=== PATIENT | female | born 2000 | race African-American/Black ===

== ENCOUNTER 2021-12-18 20:13 | Inpatient (IN) | payer MEDICAID, SELFPAY ==
[2021-12-18 20:20] VITALS: BP 95/64; PULSE 63; RESP 18; TEMP 36.8; O2SAT 100
[2021-12-18 22:05] VITALS: BMI 21.2
--- NOTE | 2021-12-19 00:55 | PC.ADMIT ---
[facility] Admission Note: The patient,Liz West,21 y/o, was given written information regarding hospital policies, unit procedures and contact persons. Patient's smoking status: . Vital Signs - 8 hr 12/18/21 20:20 Temperature 98.3 F Pulse Rate 63 Respiratory Rate 18 Blood Pressure 95/64 Pulse Oximetry 100 Patient came in as direct admission from [facility] for audio and visual hallucinations and current meth use with 96 hr hold order. Patient was calm and cooperative on admit, denies SI/HI/AVH. Stated she has a history of AVH but its only present when around her ex boyfriend, and states he never abused or hurt her. She has history of SI and previous SA, as well as self harm with several cutting scars to right forearm, and bilateral upper thighs. Patient states it has been a long time since she self harmed, and she no longer does that or has SI. Patient refused to answer alot of initial assessment questions stating i'm tired, I can do that in the morning, its been a really long day. Patient positive for amphetamines and according to chart rcvd from [facility], has known history of meth abuse and has previously been a patient at [facility]. Patient expressed interest in getting clean and returning to [facility]. Patient denied any current medications.
[2021-12-19 06:00] VITALS: BP 99/63; PULSE 57; RESP 16; TEMP 36.7; O2SAT 100
--- NOTE | 2021-12-19 10:15 | P.NPUHP_ITS ---
Providers/Chief Complaint Admitting Physician: Joseph Araujo MD Chief Complaint: Hallucinations HPI NPU History of Present Illness Liz West is a 21 year old female who [facility] reporting methamphetamine use and hallucinations as well as suicidal thoughts, reportedly on referral from a rehab she was attending. She was placed on a 96 hour hold and transferred to [facility] and transferred to the neuropsychiatric unit for definitive treatment of those issues. She presents today reporting that she has been psychiatrically hospitalized about 10 times but has not had significant outpatient services secondary to money and not having insurance. She reports she has been on different medications through the inpatient hospitalizations but not many. She reports that she smokes about 6 to 8 cigarettes a day, denies alcohol, marijuana or any other illicit drug use except for methamphetamine. She reports she has been doing methamphetamine since she was 17 years old and has been mostly using it but has some short period of sobriety, some of those connected to the 2 to 3 rehabs she has attended. She has never had a DUI or any possessions charges. She reports that when she was 11 she started having depression and her family did not assist her in getting help with the depression so it kept getting worse. She reports that by the time she was 17 she started dabbling in drugs and eventually started using methamphetamine and she says she has just been using the methamphetamine off and on since then. She reports that recently when she uses, she has psychotic symptoms and the rehab she was at wanted her to explore the meaning of the hallucinations to see if they represented just a reaction to the methamphetamine or some baseline organic condition such as schizophrenia. She reports that she did have one suicide attempt a couple years ago but denied any self-injurious behaviors. We had a long discussion about the difficulties of teasing that out especially against the backdrop of active use but we discussed how antipsychotics can assist in the alleviation of psychosis. We discussed the risks, benefits and alternatives of a trial of Abilify and she understood and agreed to proceed as is documented in this note. Psychiatric History: As above. Substance Abuse History: As above Family History: The patient denied any mental health or addiction issues on either side of the family and denied any suicide attempts or completions on either side of the family. Developmental History: There were no issues with , or delivery, she learned to walk and talk and met her developmental milestones on time, and denied any need for speech therapy, emotional support, learning support or special education classes. Psychosocial History: She reports that her mother and father were together when she was born and had 5 children who are a product of the same union. She has 3 older sisters and 1 older brother and is the youngest of the children from the same union. Her mother had no other children but her father had 2 other daughters. She reports that her childhood was rich and wealthy. She denied any emotional, physical or sexual abuse. She denied any other traumatic events which is somewhat challenging to the information that had been reported that possibly she has had some serious trauma related to trafficking or the sex trade but she not report any of those things. Later in the interview, she did start talking about these paranoid thoughts that she ?knows are real? about being followed and people trying to exploit her. She reports that she graduated from high school and denied any additional training or education. She endorses being heterosexual with her longest relationship being 2 years. She has never been , has ne loretta had any children, has never been in the and denies any caodaism belief system. 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 She does report that she is currently homeless. Legal History: She reports that she has been in shelter 4 times but denies any extended incarceration periods. Medical History: She denies any issues. She reports she started menstruation around 12 years old and denied any problems with them. Meds NPU Home Medications Medication Instructions Recorded Confirmed Last Taken Type No Known Home Medications 12/18/21 12/18/21 Unknown History Allergies Allergy/AdvReac Type Severity Reaction Status Date / Time No Known Allergies Allergy Verified 12/18/21 20:16 Mental Status Exam MSE Comments: This is a well-nourished, well-developed female with hospital scrubs on with limited grooming and eye contact. Her hair seems to be somewhat disheveled which is probably secondary to it being a wig that has not been well-kept. No abnormal movements except for mild psychomotor agitation. Cooperative with exam in mild distress. Speech was normal rate and volume. Patient mood described as sleepy, affect congruent. Thought process, organized. Thought content: patient denies any current suicidal or homicidal ideation, no delusions noted but reports of paranoia that she quickly wasn?t actual paranoia because of the experience of being followed by trucks and being stalked by exs is real, and denies any auditory or visual hallucinations. Attention and concentration are intact and memory is reliable but none were formally tested. She is alert and oriented three times. Insight and judgment are limited. Impulse control is limited. Vitals/I&O/Wt Last Vital Signs Temp 98.3 F 12/18/21 20:20 Pulse 63 12/18/21 20:20 Resp 18 12/18/21 20:20 BP 95/64 12/18/21 20:20 Pulse Ox 100 12/18/21 20:20 Weight last 48 hrs Weight 61.462 kg Weight 59 kg A&P Assessment and plan (1) Methamphetamine dependence: Status: Acute (2) Psychosis: Status: Acute Plan This is a 21 year old female who presents with active psychosis and active methamphetamine use with questions as to whether it represents substance use versus organic psychotic disorder with some concern of her story pre admission and post admission not necessarily matching who presents open to a trial of medication. Continue current medications except Start Abilify 10 mg po qam Encourage individual, group and milieu therapy Continue q-15 minute check for safety Recommend sober living treatment at the highest level of care to which the patient is willing to commit. We will get collateral information and then address with her any inconsistencies within the stories before and after admission. Involuntary Hold Information 96 Hour Hold: 96 Hour Involuntary Admission: No Attestations NPU Medical Necessity Statement*: Inpatient hospitalization is medically necessary and the clinically appropriate intervention at this time. We will monitor medications and make changes as indicated. Patient will be in the hospital for over two midnights. Likely length of stay is three to five days. Coding Level of Care Code Acute It Service Manager for Jose Rai Diagnoses Methamphetamine dependence F15.20 Psychosis F29
--- NOTE | 2021-12-19 10:43 | NPU.GN ---
[facility] Group Topic:Christina Matthew General Mood of Group: Gia did attend and participate in group today. She enjoyed the activity and sharing experiences with others in group. Her hygiene was good, She appeared to be stable mentally and emotionally.
[2021-12-19 14:00] VITALS: BP 93/58; PULSE 97; RESP 17; TEMP 36.9; O2SAT 98
[2021-12-19 20:32] VITALS: BP 87/45; PULSE 76; RESP 18; TEMP 36.7; O2SAT 97
[2021-12-20 06:00] VITALS: BP 100/64; PULSE 61; RESP 18; TEMP 36.5; O2SAT 98
[2021-12-20] MEDS: ARIPiprazole 10 mg Tablet PO (10:22)
--- NOTE | 2021-12-20 10:35 | NPU.GN ---
[facility] Group Topic: Yogesh Newman General Mood of Group: Gia attended and participated in group. She was social, her hygiene was good and she seemed stable at this time.
[2021-12-20 14:00] VITALS: BP 103/67; PULSE 112; RESP 15; TEMP 36.8; O2SAT 99
--- NOTE | 2021-12-20 14:05 | P.NPUPN_ITS ---
Subjective NPU Subjective: Patient presents today reporting that initially this morning she was feeling kind of odd. Her initial concern was that she had been having some side effect of the medication. But she had some other symptoms that made her think that it was more likely something she ate or that she had eaten enough or something. She currently denies any strange feelings or side effects from starting the medication yesterday. We discussed working with the social work team to determine what her next step will be after discharge. We also reviewed the fact that Judie would be here tomorrow but would have information to continue the process from this point. Mental Status Exam MSE Comments: This is a well-nourished, well-developed female with hospital scrubs on with limited grooming and eye contact. Her hair seems to be somewhat disheveled which is probably secondary to it being a wig that has not been well-kept. No abnormal movements. Cooperative with exam in no acute distress. Speech was normal rate and volume. Patient mood described as okay, affect congruent. Thought process, organized. Thought content: patient denies any current suicidal or homicidal ideation, no delusions noted but reports of paranoia that she quickly notede wasn?t actual paranoia because of the experience of being followed by trucks and being stalked by exs is real, and denies any auditory or visual hallucinations. Attention and concentration are intact and memory is mostly reliable but none were formally tested. She is alert and oriented three times. Insight and judgment are limited. Impulse control is limited. Vitals/I&O/Wt Last Vital Signs Temp 97.6 F 12/20/21 20:33 Pulse 80 12/20/21 20:33 Resp 18 12/20/21 20:33 BP 101/53 12/20/21 20:33 Pulse Ox 97 12/20/21 20:33 A&P Assessment and plan (1) Psychosis: Status: Acute (2) Methamphetamine dependence: Status: Acute Plan This is a 21 year old female who presents with active psychosis and active methamphetamine use with questions as to whether it represents substance use versus organic psychotic disorder with some concern of her story pre admission and post admission not necessarily matching who presents open to a trial of medication. Continue current medications except Started Abilify 10 mg po qam Encourage individual, group and milieu therapy Continue q-15 minute check for safety Recommend sober living treatment at the highest level of care to which the patient is willing to commit. We will get collateral information and then address with her any inconsistencies within the stories before and after admission. Involuntary Hold Information 96 Hour Hold: 96 Hour Involuntary Admission: Yes Attestations NPU Medical Necessity Statement*: Inpatient hospitalization is medically necessary and the clinically appropriate intervention at this time. We will monitor medications and make changes as indicated. Likely length of stay is 2-4 days. Coding Level of Care Code Acute Technical Support Engineer for Jose Rai Diagnoses Psychosis F29 Methamphetamine dependence F15.20
[2021-12-20 20:33] VITALS: BP 101/53; PULSE 80; RESP 18; TEMP 36.4; O2SAT 97
[2021-12-21 06:00] VITALS: BP 108/69; PULSE 74; RESP 16; TEMP 36.8; O2SAT 99
[2021-12-21] MEDS: benzocaine 20% 7 gm 1 APPLIC MUCOUS MEM (06:51)
[2021-12-21] MEDS: ARIPiprazole 10 mg Tablet PO (08:19)
--- NOTE | 2021-12-21 13:03 | P.NPUPN_ITS ---
Subjective NPU Subjective: She says that she is doing much better. She says that the visual hallucinations that she was having. She says that she was seeing people who were not there. She was hearing voices who was trying to control her. Sometimes she can ingnore them and sometimes she cannot. She says that she roberto es methamphetamine to help with depression which she has had since she was 11 years old. Abilify helps the halluci to and the depression. She denies side effects from it and like to continue taking it. She feels like she will be ready to go home tomorrow when her 96-hour hold. Mental Status Exam MSE Comments: This is a well-nourished, well-developed female with hospital scrubs on with limited grooming and poor eye contact. Her hair seems to be somewhat disheveled which is probably secondary to it being a wig that has not been well-kept. No abnormal movements. Cooperative with exam in no acute distress. Speech was normal rate and volume. Patient mood described as depressed but better, affect congruent. Thought process, organized. Thought content: patient denies any current suicidal or homicidal ideation, no delusions or paranoia, and denies any auditory or visual hallucinations. Attention and concentration are intact and memory is mostly reliable but none were formally tested. She is alert and oriented three times. Insight and judgment are limited. Impulse control is limited. Cognition: Patient Appearance: Appropriate Ability to Follow Directions: Excellent Patient Orientation (long list): Person, Place, Time, Name, Age, Birthday and Year Comprehension Ability: No Impairment Hallucination Type: None Delusion Description: Not Present Thought Process: Appropriate and Logical Affect: Affect Description: Appropriate and Calm Behavior: Patient Behavior: Appropriate and Cooperative Speech Pattern: Appropriate, Clear and Mumbled Vitals/I&O/Wt Last Vital Signs Temp 98.2 F 12/21/21 06:00 Pulse 74 12/21/21 06:00 Resp 16 12/21/21 06:00 BP 108/69 12/21/21 06:00 Pulse Ox 99 12/21/21 06:00 A&P Assessment and plan (1) Psychosis: Status: Acute (2) Methamphetamine dependence: Status: Acute Plan This is a 21 year old female who presents with active psychosis and active methamphetamine use with questions as to whether it represents substance use versus organic psychotic disorder with some concern of her story pre admission and post admission not necessarily matching who presents open to a trial of medication. Continue current medications except started Abilify 10 mg po qam Encourage individual, group and milieu therapy Continue q-15 minute check for safety Recommend sober living treatment at the highest level of care to which the patient is willing to commit. Involuntary Hold Information 96 Hour Hold: 96 Hour Involuntary Admission: No Attestations NPU Medical Necessity Statement*: Inpatient hospitalization is medically necessary and the clinically appropriate intervention at this time. We will initiate medications and make changes as indicated. Coding Level of Care Code Acute Sewer And Drain Technician for Jose Gustafsond Diagnoses Psychosis F29 Methamphetamine dependence F15.20
[2021-12-21 14:00] VITALS: BP 107/65; PULSE 72; RESP 14; TEMP 36.4; O2SAT 100
[2021-12-21 19:00] VITALS: BP 114/72; PULSE 71; RESP 18; TEMP 36.6; O2SAT 100
[2021-12-22 06:00] VITALS: BP 102/57; PULSE 78; RESP 16; TEMP 37.1; O2SAT 96
[2021-12-22] MEDS: ARIPiprazole 10 mg Tablet PO (08:25)
--- NOTE | 2021-12-22 09:30 | W.PM.NPUDCS ---
Diagnoses at Discharge Discharge Diagnosis (1) Psychosis: Status: Acute Qualifiers: Psychosis type: unspecified psychosis type Qualified Code(s): F29 - Unspecified psychosis not due to a substance or known physiological condition (2) Methamphetamine dependence: Status: Acute Reason for Visit Reason for Visit: Hallucinations Brief History: History of Present Illness Liz West is a 21 year old female who presented to the outside hospital reporting methamphetamine use and hallucinations as well as suicidal thoughts, reportedly on referral from a rehab she was attending. She was placed on a 96 hour hold and transferred to [facility] and transferred to the neuropsychiatric unit for definitive treatment of those issues. She presents today reporting that she has been psychiatrically hospitalized about 10 times but has not had significant outpatient services secondary to money and not having insurance. She reports she has been on different medications through the inpatient hospitalizations but not many. She reports that she smokes about 6 to 8 cigarettes a day, denies alcohol, marijuana or any other illicit drug use except for methamphetamine. She reports she has been doing methamphetamine since she was 17 years old and has been mostly using it but has some short period of sobriety, some of those connected to the 2 to 3 rehabs she has attended. She has never had a DUI or any possessions charges. She reports that when she was 11 she started having depression and her family did not assist her in getting help with the depression so it kept getting worse. She reports that by the time she was 17 she started dabbling in drugs and eventually started using methamphetamine and she says she has just been using the methamphetamine off and on since then. She reports that recently when she uses, she has psychotic symptoms and the rehab she was at wanted her to explore the meaning of the hallucinations to see if they represented just a reaction to the methamphetamine or some baseline organic condition such as schizophrenia. She reports that she did have one suicide attempt a couple years ago but denied any self-injurious behaviors. We had a long discussion about the difficulties of teasing that out especially against the backdrop of active use but we discussed how antipsychotics can assist in the alleviation of psychosis. We discussed the risks, benefits and alternatives of a trial of Abilify and she understood and agreed to proceed as is documented in this note. Hospital Course Hospital Course She slowly acclimated to the individual, group and milieu therapies provided. She was started on Abilify 10 mg in the morning . she tolerated these doses and showed steady improvement during her stay. She was able to contract for safety outside hospital prior to discharge. During the hospitalization, patient had routine laboratory studies which were within normal limits except for few outliers. Additionally there was a general medical evaluation which was also within normal limits and revealed no new acute processes. Discharge Summary: At the time of discharge, lethality was denied and psychosis was resolving. Mood and anxiety were well managed. Patient endorsed a plan to follow-up with the aftercare recommendations of the treatment team. Patient was evaluated and deemed to be absent credible lethality, and had achieved the maximum benefit from an inpatient hospitalization, so was discharged. Involuntary Hold Information 96 Hour Hold: 96 Hour Involuntary Admission: No Mental Status Exam MSE Comments: This is a well-nourished, well-developed female with hospital scrubs on with limited grooming and poor eye contact. Her hair seems to be somewhat disheveled which is probably secondary to it being a wig that has not been well-kept. No abnormal movements. Cooperative with exam in no acute distress. Speech was normal rate and volume. Patient mood described as goodr, affect congruent. Thought process, organized. Thought content: patient denies any current suicidal or homicidal ideation, no delusions or paranoia, and denies any auditory or visual hallucinations. Attention and concentration are intact and memory is mostly reliable but none were formally tested. She is alert and oriented three times. Insight and judgment are limited. Impulse control is limited. Cognition: Patient Appearance: Appropriate Ability to Follow Directions: Excellent Patient Orientation (long list): Person, Place, Time, Name, Age, Birthday and Year Comprehension Ability: No Impairment Hallucination Type: None Delusion Description: Not Present Thought Process: Appropriate and Logical Affect: Affect Description: Appropriate and Calm Behavior: Patient Behavior: Appropriate and Cooperative Speech Pattern: Appropriate and Clear Discharge Data Vitals: Last Vital Signs Temp 98.7 F 12/22/21 06:00 Pulse 78 12/22/21 06:00 Resp 16 12/22/21 06:00 BP 102/57 12/22/21 06:00 Pulse Ox 96 12/22/21 06:00 Discharge Plan Discharge Patient Disposition: Home Condition: Stable Prescriptions: New aripiprazole 10 mg Tablet 10 mg PO DAILY 30 Days Qty: 30 1RF Discharge Orders: Discharge Order (Routine); Ordered 12/22/21 Ordered By: Ramsey Dimas Discharge Diet: Regular and Cardiac Discharge Activity: Resume usual activity Patient Instructions: Opioid Safety Discharge Attestations NPU Time Spent in Discharge Care*: less than 30 min Specific Discharge Activities: Specific discharge activities: educating patient, discussing with foster care case manager/social workers/dc planners, documenting/other paperwork and evaluating patient/reviewing data Coding Level of Care Code Acute Chg FW DC note Diagnoses Psychosis F29 Psychosis type: unspecified psychosis type Methamphetamine dependence F15.20
[2021-12-22 09:40] VITALS: BP 102/57; PULSE 78; RESP 16; TEMP 37.1; O2SAT 96
== END 2021-12-22 10:30 | disposition home or self-care (01) | DRG 885 ==
PROVIDERS: Admitting Provider Psychiatry & Neurology Psychiatry; Visit Provider Psychiatry & Neurology Psychiatry
DX: F20.9 Schizophrenia, unspecified (principal); F15.20 Other stimulant dependence, uncomplicated; R45.851 Suicidal ideations; F17.210 Nicotine dependence, cigarettes, uncomplicated
CPT/HCPCS: 97150; 97165